=== PATIENT | male | born 1970 | race Caucasian/White ===

== ENCOUNTER 2017-07-03 22:28 | Emergency (ER) | payer SELFPAY ==
[~2017-07-03] VITALS: Ht 188 cm; Wt 93.0 kg
--- NOTE | 2017-07-03 22:56 | PHYS DOC ---
Adult General Chief Complaint Chief Complaint: altered mental status HPI HPI Patient is a 46 year old male who presents to the emergency department for evaluation of altered mental status. Patient was brought to the emergency department by EMS from a concert where he was found to be "half responsive." Patient was brought to the emergency department with a c-collar in place as he complained of neck pain. The patient admits to consumption of alcohol but is unable to quantify how much. The patient is otherwise a poor historian and is unable to provide any details of what has taken place during the evening. The patient is denying any other complaints at this time. Patient does not provide any past medical history. Review of Systems Review of Systems Constitutional: Denies fever or chills [] Eyes: Denies change in visual acuity, redness, or eye pain [] HENT: Denies nasal congestion or sore throat [] Respiratory: Denies cough or shortness of breath [] Cardiovascular: Denies chest pain or edema [] GI: Denies abdominal pain, nausea, vomiting, bloody stools or diarrhea [] : Denies dysuria or hematuria [] Musculoskeletal: Neck pain [] Integument: Denies rash or skin lesions [] Neurologic: Denies headache, focal weakness or sensory changes [] Current Medications Current Medications Current Medications Medications (Trade) Dose Ordered Sig/Ross Start Time Stop Time Status Last Admin Dose Admin Lidocaine/ Epinephrine (Xylocaine 1%-Epi 1:100,000) 20 ml 1X ONCE 07/04/17 01:45 07/04/17 01:46 UNV Allergies Allergies Allergies Coded Allergies Type Severity Reaction Last Updated Verified No Known Drug Allergies 07/03/17 No Physical Exam Physical Exam Constitutional: Drowsy, afebrile, no acute distress. [] HENT: Normocephalic, atraumatic, bilateral external ears normal, oropharynx moist, no oral exudates, nose normal. [] Eyes: PERRLA, EOMI, conjunctiva normal, no discharge. [] Neck: C-collar in place, no midline tenderness, supple, no stridor. [] Cardiovascular:Heart rate regular rhythm, no murmur [] Lungs & Thorax: Bilateral breath sounds clear to auscultation [] Abdomen: Bowel sounds normal, soft, no tenderness, no masses, no pulsatile masses. [] Skin: Warm, dry, no erythema, no rash. [] Back: No tenderness, no CVA tenderness. [] Extremities: No tenderness, no cyanosis, no clubbing, ROM intact, no edema. [] Neurologic: Drowsy, oriented to self, normal motor function, normal sensory function, no focal deficits noted. [] Current Patient Data Vital Signs Vital Signs Date Time Temp Pulse Resp B/P (MAP) Pulse Ox O2 Delivery O2 Flow Rate FiO2 07/04/17 00:10 80 20 116/68 (84) 97 Room Air 07/03/17 22:40 98.0 98.0 EKG EKG Not performed [] Radiology/Procedures Radiology/Procedures [facility] [address] [place] [address] IMAGING REPORT Signed PATIENT: CARMELITA JARAMILLO ACCOUNT: [id number] : 1970 LOCATION: ER AGE: 46 SEX: M EXAM STATUS: PRE ER ORD. PHYSICIAN: SHELLY HAYES MD REASON: intoxicated, found minimally responsive at music concert PROCEDURE: CT HEAD AND CERVICAL SPINE WO PQRS Compliance Statement: One or more of the following individualized dose reduction techniques were utilized for this examination: 1. Automated exposure control 2. Adjustment of the mA and/or kV according to patient size 3. Use of iterative reconstruction technique CT HEAD AND CERVICAL SPINE WITHOUT CONTRAST History: ams; etoh, found minimally responsive at music concert. Comparison: None. Procedure: Axial images are obtained of the head from the skull base through the vertex without IV contrast. Noncontrast helical CT of the cervical spine was performed. Axial, sagittal, and coronal reconstructions were obtained. Findings: The ventricles and sulci are normal for the patient's age. No mass-effect, midline shift, hemorrhage or obvious acute infarction is identified. Basilar cisterns are patent. Bone windows demonstrate no significant calvarial abnormality. The visualized paranasal sinuses are clear. Mastoid air cells are well aerated. There is no evidence of acute fracture or acute malalignment. There is disc space narrowing and degenerative endplate spurring of C6/C7, to lesser extent at C5/C6 and C7/T1. The facet joints are intact. The vertebral body height and alignment are maintained. Central canal stenosis due to disc osteophyte complex at C6/C7 may be moderate. There are multiple subcentimeter cervical lymph nodes. No appreciable adenopathy. The visualized lung apices are clear. IMPRESSION: 1. No acute intracranial abnormality. 2. No acute fracture of the cervical spine. Electronically signed by: Renato Champion MD (07/03/2017 11:17 PM) [facility] DICTATED and SIGNED BY: RENATO CHAMPION MD DATE: 07/03/17 231 CC: SHELLY HAYES MD ~ [] Course & Med Decision Making Course & Med Decision Making Pertinent Labs and Imaging studies reviewed. (See chart for details) Patient's CT scan showed no acute injuries. Patient's c-collar was cleared after patient's mental status improved. The patient is ambulatory in the emergency department with a nonfocal during gait. The patient was able to provide his home address and patient will be transferred back home in a cab. Advise follow-up with primary doctor in 3-5 days for reevaluation. Patient counseled on responsible use of alcohol. Patient voiced understanding and was in agreement with plan of care discharge. Dragon Disclaimer Dragon Disclaimer This electronic medical record was generated, in whole or in part, using a voice recognition dictation system. Departure Departure Impression: Primary Impression: Alcohol intoxication Disposition: 01 HOME, SELF-CARE Condition: IMPROVED Patient Instructions: Alcohol Intoxication Additional Instructions: Follow-up to primary doctor in the next 3-5 days for reevaluation. Return to emergency department for any worsening symptoms. Problem Qualifiers Primary Impression: Alcohol intoxication Complication of substance-induced condition: uncomplicated Qualified Codes: F10.920 - Alcohol use, unspecified with intoxication, uncomplicated SHELLY HAYES MD Jul 03, 2017 22:56
--- NOTE | 2017-07-03 23:20 | RAD ---
PQRS Compliance Statement: One or more of the following individualized dose reduction techniques were utilized for this examination: 1. Automated exposure control 2. Adjustment of the mA and/or kV according to patient size 3. Use of iterative reconstruction technique CT HEAD AND CERVICAL SPINE WITHOUT CONTRAST History: ams; etoh, found minimally responsive at music concert. Comparison: None. Procedure: Axial images are obtained of the head from the skull base through the vertex without IV contrast. Noncontrast helical CT of the cervical spine was performed. Axial, sagittal, and coronal reconstructions were obtained. Findings: The ventricles and sulci are normal for the patient's age. No mass-effect, midline shift, hemorrhage or obvious acute infarction is identified. Basilar cisterns are patent. Bone windows demonstrate no significant calvarial abnormality. The visualized paranasal sinuses are clear. Mastoid air cells are well aerated. There is no evidence of acute fracture or acute malalignment. There is disc space narrowing and degenerative endplate spurring of C6/C7, to lesser extent at C5/C6 and C7/T1. The facet joints are intact. The vertebral body height and alignment are maintained. Central canal stenosis due to disc osteophyte complex at C6/C7 may be moderate. There are multiple subcentimeter cervical lymph nodes. No appreciable adenopathy. The visualized lung apices are clear. IMPRESSION: 1. No acute intracranial abnormality. 2. No acute fracture of the cervical spine. Electronically signed by: Renato Heredia MD (07/03/2017 11:17 PM) [facility]
[2017-07-04 01:40] VITALS: BP 110/58
[2017-07-04] MEDS ORDERED: LIDOCAINE 1%/EPI 1:100,000 20 ML VIAL. INJ ONE (01:45)
== END 2017-07-04 02:00 | disposition home or self-care (01) ==
LOC: ER 22:28
DX: F10.920 Alcohol use, unspecified with intoxication, uncomplicated (principal); R41.82 Altered mental status, unspecified; M54.2 Cervicalgia
CPT/HCPCS: 70450; 72125; 99284-25